=== PATIENT | male | born 1965 | race Caucasian/White ===

== ENCOUNTER 2018-03-15 22:12 | Inpatient (IN) | payer OTHER ==
[~2018-03-15] VITALS: Ht 175.3 cm; Wt 131.7 kg
[~2018-03-15 22:12] MED LIST: AMBIEN10 MG PO; AMLODIPINE BESYL5 MG PO; ATARAX,VISTARIL50 MG PO; B-1100 MG PO; CIPRO500 MG PO; CLONAZEPAM0.5 MG PO; CYMBALTA30 MG PO; CYMBALTA60 MG PO; DHEA50 MG PO; ENDOCET 5-3251 EACH PO; ERGOCALCIF50000 UNIT PO; HYDROCHLOROTHIA25 MG PO; HYDROCODON-ACE1 EAC7 PO; HYDROXYZINE HCL50 MG PO; JANUVIA100 MG PO; LIBRIUM25 MG PO; LOPRESSOR50 MG PO; LOSARTAN POTASS50 MG PO; LYRICA75 MG PO; MAG-OXIDE400 MG PO; MAGNESIUM400 M1 PO; MELOXICAM15 MG PO; METFORMIN HCL1000 MG PO; METOPROLOL SUCC50 MG PO; METOPROLOL TART50 MG PO; OXYCODONE HCL10 MG PO; PAROXETINE HCL40 MG PO; PAXIL30 MG PO; PERCOCET 5/31 TABLET PO; PREDNISONE10 MG PO; REQUIP1 MG PO; ROPINIROLE HCL1 MG PO; ROPINIROLE HCL2 MG PO; SIMVASTATIN20 MG PO; VICODIN ES 7.51 EAC1 PO; VITAMIN D31000 UNI2 PO; VYTORIN 10/41 TABLET PO; ZOLPIDEM TARTRA10 MG PO
[2018-03-16 00:16] LABS: HEMATOCRIT 48.1 % (38.0-50.0); HEMOGLOBIN 18.3 G/DL (12.5-16.6); MCH 32.9 PG (29.0-34.0); MCV 86.5 FL (86-99); PLATELET COUNT 77 K/uL (156-360); RBC DIS.WIDTH-CV 12.8 % (11.8-14.6); RED BLOOD COUNT 5.56 M/uL (4.00-5.50); WHITE BLOOD COUNT 5.5 K/uL (4.1-10.2)
[2018-03-16 00:20] LABS: ALBUMIN 4.3 g/dL (3.2-4.8)
[2018-03-16 00:22] LABS: GLUCOSE 162 mg/dL (70-99)
[2018-03-16 00:23] LABS: TOTAL PROTEIN 8.5 g/dL (6.4-8.3)
[2018-03-16 00:24] LABS: TOTAL BILIRUBIN 1.5 mg/dL (0.0-1.0)
[2018-03-16 00:25] LABS: SERUM ETHYL ALCOHOL 328 mg/dL
[2018-03-16 00:26] LABS: ALKALINE PHOSPHATASE 87 IU/L (3-129); CREATININE 1.1 mg/dL (0.6-1.3); GFR ESTIMATE (CALCULATED) > 59 mL/min/ (58.99-99999)
[2018-03-16 00:27] LABS: UREA NITROGEN (BUN) 9 mg/dL (9-23)
[2018-03-16 00:28] LABS: AST (GOT) 154 IU/L (2-34)
[2018-03-16 00:29] LABS: ALT (GPT) 131 IU/L (3-49)
[2018-03-16 00:39] LABS: CHLORIDE 96 mEq/L (99-109); POTASSIUM 4.1 mEq/L (3.7-5.4); SODIUM 137 mEq/L (136-147)
[2018-03-16 00:46] LABS: ACETAMINOPHEN (TYLENOL) < 10 mcg/mL (10-30); SALICYLATE < 5.0 MG/DL (15-30)
[2018-03-16 01:51] LABS: MAGNESIUM 2.1 mg/dL (1.3-2.7)
[2018-03-16 02:16] VITALS: BP 177/88
[2018-03-16 07:57] VITALS: BP 145/70
[2018-03-16 12:17] VITALS: BP 152/97
[2018-03-16] MEDS ORDERED: PERCOCET 7.51 TABLET PO (12:26)
[2018-03-16] MEDS ORDERED: COZAAR50 MG PO (12:27)
[2018-03-16 16:18] VITALS: BP 178/91
[2018-03-16 19:25] VITALS: BP 187/91
[2018-03-16 23:21] VITALS: BP 214/97
[2018-03-17] VITALS (7 sets, daily range): BP systolic 146–197; BP diastolic 70–93
[2018-03-17 06:26] LABS: HEMATOCRIT 43.6 % (38.0-50.0); MCHC 36.5 G/DL (30.0-36.0); MCV 87.7 FL (86-99); PLATELET COUNT 61 K/uL (156-360); RBC DIS.WIDTH-CV 12.8 % (11.8-14.6); RED BLOOD COUNT 4.97 M/uL (4.00-5.50); WHITE BLOOD COUNT 6.7 K/uL (4.1-10.2)
[2018-03-17 06:31] LABS: HEMOGLOBIN 15.9 G/DL (12.5-16.6)
[2018-03-17 06:46] LABS: ALBUMIN 3.6 G/DL (3.2-4.8); ALKALINE PHOSPHATASE 61 IU/L (3-129); ALT (GPT) 79 IU/L (3-49); AST (GOT) 76 IU/L (2-34); CHLORIDE 95 MEQ/L (99-109); CREATININE 0.9 MG/DL (0.6-1.3); GFR ESTIMATE (CALCULATED) > 59 mL/min/ (58.99-99999); POTASSIUM 3.5 MEQ/L (3.7-5.4); SODIUM 135 MEQ/L (136-147); TOTAL BILIRUBIN 2.2 MG/DL (0.0-1.0); TOTAL PROTEIN 6.4 G/DL (6.4-8.3); UREA NITROGEN (BUN) 7 mg/dL (9-23)
[2018-03-17 07:02] LABS: GLUCOSE 120 mg/dL (70-99)
[2018-03-18 03:31] VITALS: BP 155/93
[2018-03-18 08:09] VITALS: BP 148/70
[2018-03-18 08:33] LABS: BASOPHIL (%) 0.8 % (0-1); BASOPHIL COUNT 0.1 K/uL (0-0.1); EOSINOPHIL (%) 1.1 % (0-5); EOSINOPHIL COUNT 0.1 K/uL (0-0.3); HEMATOCRIT 44.2 % (38.0-50.0); HEMOGLOBIN 16.3 G/DL (12.5-16.6); IMMATURE GRANULOCYTE (%) 0.5 % (0.0-0.7); MCH 32.5 PG (29.0-34.0); MCHC 36.9 G/DL (30.0-36.0); MCV 88.2 FL (86-99); MONOCYTE (%) 7.6 % (3-12); MONOCYTE COUNT 0.5 K/uL (0-0.8); NEUTROPHIL COUNT 4.8 K/uL (1.8-6.4); PLATELET COUNT 59 K/uL (156-360); RBC DIS.WIDTH-SD 41.6 % (39-53); RED BLOOD COUNT 5.01 M/uL (4.00-5.50); WHITE BLOOD COUNT 6.4 K/uL (4.1-10.2)
[2018-03-18 08:59] LABS: ALBUMIN 3.7 G/DL (3.2-4.8); ALKALINE PHOSPHATASE 66 IU/L (3-129); ALT (GPT) 57 IU/L (3-49); AST (GOT) 44 IU/L (2-34); CHLORIDE 99 MEQ/L (99-109); CREATININE 0.9 MG/DL (0.6-1.3); DIRECT BILIRUBIN 0.7 mg/dL (0.0-0.3); GFR ESTIMATE (CALCULATED) > 59 mL/min/ (58.99-99999); GLUCOSE 104 mg/dL (70-99); POTASSIUM 3.2 MEQ/L (3.7-5.4); SODIUM 138 MEQ/L (136-147); TOTAL BILIRUBIN 2.2 MG/DL (0.0-1.0); TOTAL PROTEIN 6.5 G/DL (6.4-8.3); UREA NITROGEN (BUN) 8 mg/dL (9-23)
[2018-03-18 11:57] LABS: HEMOGLOBIN A1c (GLYCOHEMOGLOB) 6.3 % (Below 5.7)
[2018-03-18 12:02] VITALS: BP 171/98
[2018-03-18] MEDS ORDERED: FOLIC ACID1 MG PO (12:55)
[2018-03-18] MEDS ORDERED: CHLORDIAZEPOXID25 MG PO (14:41)
== END 2018-03-18 15:07 | disposition home or self-care (01) | DRG 897 ==
LOC: EME 22:12 → EDOF 03-16 01:16 → 5SOUTH 03-16 01:16 → ENRESERV 03-16 01:18 → 5SOUTH 03-16 02:08 → ENPENDDIS 03-18 14:15 → 5SOUTH 03-18 15:07
PROVIDERS: Internal Medicine; Nurse Practitioner Family; Physician Assistant
DX: F10.229 Alcohol dependence with intoxication, unspecified (principal); E11.40 Type 2 diabetes mellitus with diabetic neuropathy, unspecified; D69.59 Other secondary thrombocytopenia; F10.239 Alcohol dependence with withdrawal, unspecified; E66.01 Morbid (severe) obesity due to excess calories; Z68.41 Body mass index [BMI] 40.0-44.9, adult; E11.65 Type 2 diabetes mellitus with hyperglycemia; I10 Essential (primary) hypertension; Z85.528 Personal history of other malignant neoplasm of kidney; Z90.5 Acquired absence of kidney; K70.9 Alcoholic liver disease, unspecified; F32.9 Major depressive disorder, single episode, unspecified; F41.9 Anxiety disorder, unspecified; Z79.84 Long term (current) use of oral hypoglycemic drugs; K76.0 Fatty (change of) liver, not elsewhere classified; K80.20 Calculus of gallbladder without cholecystitis without obstruction; Y90.8 Blood alcohol level of 240 mg/100 ml or more; Z72.0 Tobacco use; Z91.14 Patient's other noncompliance with medication regimen
CPT/HCPCS: 76705; 80048; 80053; 80076; 82948; 83036; 83735; 85025; 85027; 94799; 99281; 99284; G0480; J0360; J1815; J2060; J2765; J3411; J7030